=== PATIENT | female | born 1980 | race American Indian/Alaskan Native ===

== ENCOUNTER 2018-11-06 02:17 | Emergency (ER) | payer SELFPAY ==
[2018-11-06 03:11] LABS: Basophils % (Auto) 0.3 % (0.0-1.8); Eosinophils # (Auto) 0.1 K/mm3 (0.0-0.4); Eosinophils % (Auto) 1.8 % (0.0-4.3); Hematocrit 39.5 % (30.3-42.9); Hemoglobin 13.1 gm/dl (10.1-14.3); Lymphocytes # (Auto) 2.7 K/mm3 (1.2-5.4); Lymphocytes % (Auto) 48.4 % (13.4-35.0); Mean Corpuscular HGB Conc 33 % (30-34); Mean Corpuscular Volume 92 fl (79-97); Monocytes # (Auto) 0.3 K/mm3 (0.0-0.8); Monocytes % (Auto) 6.2 % (0.0-7.3); Platelet Count 213 K/mm3 (140-440); Red Cell Distribution Width 19.7 % (13.2-15.2)
[2018-11-06 03:34] LABS: Alanine Aminotransferase 24 units/L (7-56); Albumin 4.2 g/dL (3.9-5); BUN/Creatinine Ratio 5; Blood Urea Nitrogen 3 mg/dL (7-17); Calcium 8.7 mg/dL (8.4-10.2); Hemolysis Index 0
[2018-11-06] MEDS ORDERED: FOLVITE 1 MG, INFUVITE 10 ML, MAGNESIUM SULFATE 2 GM in NACL 0.9% 1000 ML 1,000 ML IV ONE (04:13)
[2018-11-06] MEDS ORDERED: NACL 0.9% 1000 ML 1,000 ML IV ONE (04:15)
--- NOTE | 2018-11-06 04:17 | Emergency Department Report ---
HPI - HPI HPI: Room 18 The patient is a 38-year-old female presenting with a chief complaint of hematuria. The patient states she developed hematuria 1 night in addition to dysuria. The patient states she's had lower abdominal pain for 1 day. The patient is intoxicated and is a very poor historian Location: Abdomen Duration: [See above] Quality: Pain Severity: Moderate Modifying factors: [see above] Context: [see above] Mode of transportation: [not driving] <BRIDGET OHARA - Last Filed: 11/06/18 05:14> <JASBIR VALVERDE - Last Filed: 11/06/18 14:48> - General Chief Complaint: Abdominal Pain Time Seen by Provider: 11/06/18 04:08 ED Past Medical Hx - Past Medical History Hx Seizures: Yes Hx Psychiatric Treatment: Yes Hx Asthma: Yes Additional medical history: Anemia - Surgical History Additional Surgical History: X 2. Hardware - Family History Family history: no significant - Social History Smoking Status: Current Every Day Smoker Substance Use Type: Alcohol <BRIDGET OHARA - Last Filed: 11/06/18 05:14> <JASBIR VALVERDE - Last Filed: 11/06/18 14:48> - Medications Home Medications: Home Medications Medication Instructions Recorded Confirmed Last Taken Type levoFLOXacin [Levaquin TAB] 500 mg PO QDAY #7 tablet 11/06/18 Unknown Rx ED Review of Systems ROS: Stated complaint: BODY PAIN Other details as noted in HPI Comment: Unobtainable due to pts medical conditions <BRIDGET OHARA - Last Filed: 11/06/18 05:14> ROS: Stated complaint: BODY PAIN Other details as noted in HPI <JASBIR VALVERDE - Last Filed: 11/06/18 14:48> Physical Exam - Physical Exam Vital Signs: Vital Signs 11/06/18 02:32 Temperature 97.4 F L Pulse Rate 106 H Respiratory 20 Rate Blood Pressure 120/83 O2 Sat by Pulse 94 Oximetry Physical Exam: GENERAL: The patient is well-developed well-nourished female lying on stretcher sleeping not appearing to be in acute distress. [] HEENT: Normocephalic. Atraumatic. Extraocular motions are intact. Patient has moist mucous membranes. NECK: Supple. Trachea midline CHEST/LUNGS: There is no respiratory distress noted. HEART/CARDIOVASCULAR: Regular. There is tachycardia. ABDOMEN: There is no abdominal distention. SKIN: There is no rash. There is no diaphoresis. NEURO: The patient is asleep but awakens with tactile stimuli. Patient appears intoxicated. The patient is cooperative. The patient has normal speech MUSCULOSKELETAL: There is no evidence of acute injury. <BRIDGET OHARA - Last Filed: 11/06/18 05:14> - Physical Exam Vital Signs: Vital Signs 11/06/18 11/06/18 02:32 06:22 Temperature 97.4 F L 98.0 F Pulse Rate 106 H 100 H Respiratory 20 14 Rate Blood Pressure 120/83 Blood Pressure 122/74 [Left] O2 Sat by Pulse 94 98 Oximetry <JASBIR VALVERDE - Last Filed: 11/06/18 14:48> ED Course Vital Signs 11/06/18 02:32 Temperature 97.4 F L Pulse Rate 106 H Respiratory 20 Rate Blood Pressure 120/83 O2 Sat by Pulse 94 Oximetry <BRIDGET OHARA - Last Filed: 11/06/18 05:14> Vital Signs 11/06/18 11/06/18 02:32 06:22 Temperature 97.4 F L 98.0 F Pulse Rate 106 H 100 H Respiratory 20 14 Rate Blood Pressure 120/83 Blood Pressure 122/74 [Left] O2 Sat by Pulse 94 98 Oximetry <JASBIR VALVERDE - Last Filed: 11/06/18 14:48> ED Medical Decision Making - Lab Data Result diagrams: 11/06/18 02:57 11/06/18 02:57 - Radiology Data Radiology results: report reviewed (CT abdomen and pelvis), image reviewed (CT abdomen and pelvis) [address] [address] Cat Scan Report Signed Patient: MONA KEN MR#: [id number] : 1980 Acct:[id number] Age/Sex: 38 / F ADM Date: 11/06/18 Loc: ED Attending Dr: Ordering Physician: BRIDGET OHARA MD Date of Service: 11/06/18 Procedure(s): CT abdomen pelvis wo con Accession Number(s): [id number] cc: BRIDGET OHARA MD FINAL REPORT EXAM: CT ABDOMEN PELVIS WO CON HISTORY: lower abdominal pain, hematuria TECHNIQUE: CT images are acquired through the Abdomen and Pelvis following intravenous administration of contrast. Transaxial, coronal and sagittal ref ormations are provided. PRIORS: None FINDINGS: Partially visualized intrathoracic contents are unremarkable. The liver, gallbladder, pancreas, spleen, and adrenal glands are unremarkable. Streak artifact obscures much of the left kidney. Proximal left ureteral ectasia. No nephrolithiasis or definite hydronephrosis. Kidneys are normal in size, axis and position. No stones in the urinary bladder or free fluid in the pelvis. Anteverted uterus. Small and large bowel are normal in caliber. Appendix is normal. No free air, free fluid, or lymphadenopathy identified. Aorta is normal in course and caliber. Superficial soft tissues are remarkable for umbilical and supraumbilical fat containing hernias measuring up to 2 cm at the neck. There is rectus diastasis. No acute or aggressive appearing skeletal findings. IMPRESSION: Mild left ureteral ectasia without nephrolithiasis or definite hydronephrosis may be due to recently passed stone or infection. Correlation with urinalysis is requested. No other potentially acute findings identified in the abdomen or pelvis. Umbilical and supraumbilical fat containing hernias measure up to 2 cm at the neck. Transcribed By: MB Dictated By: JAVIER ZAVALA MD Electronically Authenticated By: JAVIER ZAVALA MD Signed Date/Time: 11/06/18508 DD/ 6 TD/TT: 11/06/18506 - Differential Diagnosis renal colic, UTI, pyelonephritis, bladder mass <BRIDGET OHARA - Last Filed: 11/06/18 05:14> - Lab Data Result diagrams: 11/06/18 02:57 11/06/18 02:57 - Medical Decision Making Ms. Ken presents with alcohol intoxication, BAL 0.35. I have observed her in the ED for 9 hours. She has been in the ER for a total of 12.5 hours. She is awake, alert and quite pleasant. She is ambulatory without difficulty. Now sober after 12.5 hours of observation and cardiac monitoring. Dc'd home. She denies any pain at this time. <JASBIR VALVERDE - Last Filed: 11/06/18 14:48> Critical care attestation.: If time is entered above; I have spent that time in minutes in the direct care of this critically ill patient, excluding procedure time. <BRIDGET OHARA - Last Filed: 11/06/18 05:14> Critical care attestation.: If time is entered above; I have spent that time in minutes in the direct care of this critically ill patient, excluding procedure time. <JASBIR VALVERDE - Last Filed: 11/06/18 14:48> ED Disposition Is pt being admited?: No Does the pt Need Aspirin: No Time of Disposition: 05:15 (d/c to family or when etoh <0.08) <BRIDGET OHARA - Last Filed: 11/06/18 05:14> Is pt being admited?: No Does the pt Need Aspirin: No Time of Disposition: 14:45 <NICOLLEJASBIR - Last Filed: 11/06/18 14:48> Clinical Impression: Acute alcohol intoxication, Acute abdominal pain Disposition: DC- TO HOME OR SELFCARE Condition: Stable Instructions: Abdominal Pain (ED) Additional Instructions: Return to the emergency department immediately should you develop worsening symptoms, fever, inability to tolerate food or liquid or any other concerns. Prescriptions: levoFLOXacin [Levaquin TAB] 500 mg PO QDAY #7 tablet Referrals: [facility] - [place] [Outside] - 3-5 Days
[2018-11-06] MEDS ORDERED: VITAMIN B-1 PO ONE (05:00)
--- NOTE | 2018-11-06 05:09 | Cat Scan Report ---
FINAL REPORT EXAM: CT ABDOMEN PELVIS WO CON HISTORY: lower abdominal pain, hematuria TECHNIQUE: CT images are acquired through the Abdomen and Pelvis following intravenous administratio n of contrast. Transaxial, coronal and sagittal reformations are provided. PRIORS: None FINDINGS: Partially visualized intrathoracic contents are unremarkable. The liver, gallbladder, pancreas, spleen, and adrenal glands are unremarkable. Streak artifact obscures much of the left kidney. Proximal left ureteral ectasia. No nephrolithiasis or definite hydronephrosis. Kidneys are normal in size, axis and position. No stones in the urinary b ladder or free fluid in the pelvis. Anteverted uterus. Small and large bowel are normal in caliber. Appendix is normal. No free air, free fluid, or lymphade nopathy identified. Aorta is normal in course and caliber. Superficial soft tissues are remarkable for umbilical and supraumbilical fat containing hernias measu ring up to 2 cm at the neck. There is rectus diastasis. No acute or aggressive appearing skeletal fin dings. IMPRESSION: Mild left ureteral ectasia without nephrolithiasis or definite hydronephrosis may be due to recently passed stone or infection. Correlation with urinalysis is requested. No other potentially acute findi ngs identified in the abdomen or pelvis. Umbilical and supraumbilical fat containing hernias measure up to 2 cm at the neck.
[2018-11-06] MEDS ORDERED: K-DUR PO ONE (05:13)
[2018-11-06 05:54] LABS: Amorphous Crystals,Urine 1+; Bacteria,Urine 1+ /HPF (Negative); Bilirubin,Urine NEG (Negative); Blood,Urine MOD (Negative); Color,Urine Yellow (Yellow); Mucus,Urine FEW /HPF; Protein,Urine <15 mg/dL mg/dL (Negative)
[2018-11-06 15:57] VITALS: BP 113/74
== END 2018-11-06 15:30 | disposition home or self-care (01) ==
LOC: ED 02:17
DX: F10.129 Alcohol abuse with intoxication, unspecified (principal); R10.30 Lower abdominal pain, unspecified; J45.909 Unspecified asthma, uncomplicated; F17.200 Nicotine dependence, unspecified, uncomplicated
CPT/HCPCS: 36415; 74176; 80053; 81001; 83690; 84703; 85025; 86850; 86900; 86901; 96365; 96366; 99284; G0480; J3411; 80320

== ENCOUNTER 2020-06-27 17:10 | Emergency (ER) | payer SELFPAY ==
[2020-06-27 17:35] VITALS: BP 145/90
[2020-06-27] MEDS ORDERED: SODIUM CHLORIDE 0.9% 500 ML 500 ML IV ONE (17:37)
[2020-06-27 17:59] LABS: Hematocrit 38.2 % (30.3-42.9); Hemoglobin 12.3 gm/dl (10.1-14.3); Mean Corpuscular HGB Conc 32 % (30-34); Mean Corpuscular Volume 98 fl (79-97); Platelet Count 197 K/mm3 (140-440); Red Blood Count 3.92 M/mm3 (3.65-5.03); Red Cell Distribution Width 16.8 % (13.2-15.2)
[2020-06-27 18:17] LABS: Alanine Aminotransferase 9 units/L (7-56); Albumin 3.6 g/dL (3.9-5); Blood Urea Nitrogen 4 mg/dL (7-17); Calcium 9.1 mg/dL (8.4-10.2); Hemolysis Index 4
[2020-06-27 18:21] LABS: INR 1.25 (0.87-1.13)
--- NOTE | 2020-06-27 18:23 | XRay Report ---
CHEST 2 VIEWS, 06/27/2020 5:15 PM INDICATION: Sepsis COMPARISON: None FINDINGS: Support devices: None. Heart: The cardiac silhouette is normal in size. Lungs/pleura: The lungs are clear of focal airspace disease or significant pleural effusion. Additional findings: Evaluation of bony structures demonstrate indeterminant sclerotic changes of the visualized right scapula. IMPRESSION: 1. No evidence of acute cardiopulmonary process. Signer Name: Danii Bahena MD Signed: 06/27/2020 6:18 PM Workstation Name: [id number]
[2020-06-27 18:48] LABS: BUN/Creatinine Ratio 8
[2020-06-27 19:16] LABS: Basophils % (Manual) 0 % (0.0-1.8); Eosinophils % (Manual) 0 % (0.0-4.3); Total Cells Counted 100
[2020-06-27 19:20] LABS: Platelet Estimate Consistent w Auto; RBC Morphology Normal
== END 2020-06-27 21:50 | disposition left against medical advice (07) ==
LOC: ED 17:10
DX: M79.89 Other specified soft tissue disorders (principal); Z53.21 Procedure and treatment not carried out due to patient leaving prior to being seen by health care provider
CPT/HCPCS: 36415; 71046; 80053; 82140; 82805; 85007; 85025; 85610; 87040